=== PATIENT | male | born 1995 | race Caucasian/White ===

== ENCOUNTER 2018-02-23 15:14 | Inpatient (IN) | payer MEDICAID, OTHER ==
[~2018-02-23] VITALS: Ht 170.2 cm; Wt 67.6 kg
[2018-02-23] MEDS ORDERED: LORazepam 2 MG TABLET PO ONE (16:00)
[2018-02-23] MEDS ORDERED: HALOPERIDOL 5 MG TABLET PO ONE (16:00)
[2018-02-23 16:41] LABS: ANION GAP 17 mmol/L (8-16); CALCIUM, TOTAL 9.6 mg/dL (8.8-10.5); CARBON DIOXIDE 24 mmol/L (22-29); CHLORIDE 101 mmol/L (98-107); CREATININE 0.73 mg/dL (0.60-1.30); GLOMERULAR FILTR. RATE CALC > 60 mL/min (>60); GLUCOSE,RANDOM 109 mg/dL (70-110); POTASSIUM 3.4 mmol/L (3.5-5.1); SODIUM SERUM 142 mmol/L (136-145); UREA NITROGEN, BLOOD 9 mg/dL (7-18)
[2018-02-23 16:42] LABS: BASOPHILS % (AUTO) 0.5 % (0.0-2.0); EOSINOPHILS % (AUTO) 0.1 % (1.0-6.0); HEMATOCRIT 46.5 % (41-53); HEMOGLOBIN 16.7 g/dL (13.5-17.5); LYMPHOCYTES # (AUTO) 0.9 K/uL (1.0-4.8); LYMPHOCYTES % (AUTO) 9.7 % (22.0-44.0); MEAN CORPUSCULAR HEMOGLOBIN 30.1 pg (26.0-34.0); MEAN CORPUSCULAR HGB CONC 35.9 G/dL (31.0-37.0); MEAN CORPUSCULAR VOLUME 84 fL (80-100); MONOCYTES # (AUTO) 0.6 K/uL (0.1-1.0); MONOCYTES % (AUTO) 6.3 % (2.0-9.0); NEUTROPHILS # (AUTO) 8.2 K/uL (1.8-7.7); NEUTROPHILS % (AUTO) 83.4 % (40.0-70.0); PLATELET COUNT (AUTO) 234 K/uL (150-450); RED BLOOD CELL COUNT(AUTO) 5.54 MIL/uL (4.50-5.90); RED CELL DISTRIBUTION WIDTH 12.8 % (11.5-14.5)
[2018-02-23 16:44] LABS: ALANINE AMINOTRANSFERASE 22 U/L (12-78); ALBUMIN 5.4 g/dL (3.4-5.0); ALKALINE PHOSPHATASE 64 U/L (46-116); ASPARTATE AMINOTRANSFERASE 18 U/L (15-37); BILIRUBIN,TOTAL 4.5 mg/dL (0.1-1.0); TOTAL PROTEIN, SERUM 8.9 g/dL (6.4-8.2)
[2018-02-23 18:55] VITALS: BP 104/60
[2018-02-23] MEDS ORDERED: POTASSIUM CHLORIDE 20 MEQ ER TABLET PO ONE (20:00)
[2018-02-24 06:31] VITALS: BP 149/79
[2018-02-24 08:28] VITALS: BP 138/65
[2018-02-24] MEDS: LORazepam 2 MG TABLET PO PRN ×3 (08:32→20:26)
[2018-02-24] MEDS: HALOPERIDOL 5 MG TABLET PO PRN (08:32)
[2018-02-24] MEDS ORDERED: DiphenhydrAMINE HCL 50 MG/ML VIAL ONE (11:56)
[2018-02-24] MEDS ORDERED: LORazepam 2 MG/ML VIAL ONE (11:56)
[2018-02-24] MEDS ORDERED: HALOPERIDOL LACTATE 5 MG/ML VIAL ONE (11:56)
[2018-02-24] MEDS ORDERED: LORazepam 2 MG/ML VIAL IM ONE (12:15)
[2018-02-24] MEDS ORDERED: DiphenhydrAMINE HCL 50 MG/ML VIAL IM ONE (12:15)
[2018-02-24] MEDS ORDERED: HALOPERIDOL LACTATE 5 MG/ML VIAL IM ONE (12:15)
[2018-02-24 12:40] VITALS: BP 120/71
[2018-02-24] MEDS: FLUoxetine HCL 20 MG CAPSULE PO SCH (15:17)
[2018-02-24] MEDS: BENZTROPINE MESYLATE 0.5 MG TABLET PO SCH (16:23)
[2018-02-24] MEDS: HALOPERIDOL 5 MG TABLET PO SCH (16:24)
[2018-02-24] MEDS: ZOLPIDEM TARTRATE 10 MG TABLET PO PRN (20:26)
[2018-02-25 03:43] VITALS: BP 148/92
[2018-02-25 08:19] VITALS: BP 142/82
[2018-02-25] MEDS: BENZTROPINE MESYLATE 0.5 MG TABLET PO SCH ×2 (08:19→16:24)
[2018-02-25] MEDS: FLUoxetine HCL 20 MG CAPSULE PO SCH (08:19)
[2018-02-25] MEDS: HALOPERIDOL 5 MG TABLET PO SCH ×2 (08:19→16:24)
[2018-02-25 09:00] LABS: HEMOGLOBIN A1C 5.5 % (4.5-6.2)
[2018-02-25 09:20] LABS: ANION GAP 11 mmol/L (8-16); CALCIUM, TOTAL 9.1 mg/dL (8.8-10.5); CARBON DIOXIDE 27 mmol/L (22-29); CHLORIDE 101 mmol/L (98-107); CHOL/HDL RATIO 2.3 (4.2-7.3); CHOLESTEROL 139 mg/dL (131-200); CREATININE 0.73 mg/dL (0.60-1.30); FREE T4 (FREE THYROXINE) 1.29 ng/dL (0.76-1.46); GLOMERULAR FILTR. RATE CALC > 60 mL/min (>60); GLUCOSE,RANDOM 121 mg/dL (70-110); HDL CHOLESTEROL 60 mg/dL (40-60); LDL CHOL (CALC.) 67 mg/dL (0-130); POTASSIUM 3.3 mmol/L (3.5-5.1); SODIUM SERUM 139 mmol/L (136-145); THYROID STIMULATING HORMONE 1.82 uIU/mL (0.36-3.74); TRIGLYCERIDES 58 mg/dL (15-150); UREA NITROGEN, BLOOD 12 mg/dL (7-18)
[2018-02-25] MEDS ORDERED: IBUPROFEN 600 MG TABLET PO PRN (10:00)
[2018-02-25] MEDS ORDERED: ONDANSETRON HCL 4 MG TABLET PO PRN (10:00)
[2018-02-25] MEDS ORDERED: BENZOCAINE/MENTHOL LOZENGE MM PRN (10:00)
[2018-02-25] MEDS ORDERED: LOPERAMIDE HCL 2 MG CAPSULE PO PRN (10:00)
[2018-02-25] MEDS ORDERED: ALBUTEROL SULFATE HFA 90 MCG/PUFF 8 GM INHALER IH PRN (10:00)
[2018-02-25] MEDS ORDERED: PETROLATUM,WHITE 71 GM JELLY TP PRN (10:00)
[2018-02-25] MEDS ORDERED: ACETAMINOPHEN 325 MG TABLET PO PRN (10:00)
[2018-02-25] MEDS ORDERED: BACITRACIN 28.4 GM OINTMENT TP PRN (10:00)
[2018-02-25] MEDS ORDERED: MAG HYDROX/AL HYDROX/SIMETH ES 30 ML SUSPENSION UDCUP PO PRN (10:00)
[2018-02-25] MEDS ORDERED: CloNIDine HCL 0.1 MG TABLET PO PRN (10:00)
[2018-02-25] MEDS ORDERED: MAGNESIUM HYDROXIDE SUSPENSION 30 ML UDCUP PO PRN (10:00)
[2018-02-25] MEDS ORDERED: POTASSIUM CHLORIDE 20 MEQ ER TABLET PO ONE (10:45)
[2018-02-25 16:05] VITALS: BP 139/66
[2018-02-25] MEDS: LORazepam 2 MG TABLET PO PRN ×2 (16:24→20:29)
[2018-02-25] MEDS: ZOLPIDEM TARTRATE 10 MG TABLET PO PRN (20:29)
[2018-02-26] MEDS: LORazepam 2 MG TABLET PO PRN ×3 (01:37→18:59)
[2018-02-26] MEDS: HALOPERIDOL 5 MG TABLET PO PRN ×3 (01:37→18:59)
[2018-02-26 01:56] VITALS: BP 132/77
[2018-02-26 08:20] VITALS: BP 134/81
[2018-02-26] MEDS: BENZTROPINE MESYLATE 0.5 MG TABLET PO SCH ×2 (08:42→17:26)
[2018-02-26] MEDS: HALOPERIDOL 5 MG TABLET PO SCH ×2 (08:42→17:26)
[2018-02-26] MEDS: FLUoxetine HCL 20 MG CAPSULE PO SCH (08:42)
[2018-02-26 16:05] VITALS: BP 113/69
[2018-02-27] MEDS: HALOPERIDOL 5 MG TABLET PO PRN (02:07)
[2018-02-27 02:08] VITALS: BP 117/68
[2018-02-27] MEDS: LORazepam 2 MG TABLET PO PRN ×3 (02:17→14:23)
[2018-02-27 08:13] VITALS: BP 120/72
[2018-02-27] MEDS: FLUoxetine HCL 20 MG CAPSULE PO SCH (08:22)
[2018-02-27] MEDS: HALOPERIDOL 5 MG TABLET PO SCH (08:22)
[2018-02-27] MEDS: BENZTROPINE MESYLATE 0.5 MG TABLET PO SCH ×2 (08:22→16:58)
[2018-02-27 11:00] LABS: APPEARANCE,URINE CLOUDY (CLEAR)
[2018-02-27 11:01] LABS: BILIRUBIN,URINE NEGATIVE (NEGATIVE); GLUCOSE, URINE (UA) NEGATIVE (NEGATIVE); KETONES,URINE NEGATIVE (NEGATIVE); LEUKOCYTE ESTERASE ,URINE SMALL (NEGATIVE); NITRATE,URINE NEGATIVE (NEGATIVE); OCCULT BLOOD,URINE NEGATIVE (NEGATIVE); PROTEIN,URINE NEGATIVE (NEGATIVE); UROBILINOGEN,URINE 0.2 mg/dL (<=1.0)
[2018-02-27 11:03] LABS: AMORPHOUS SEDIMENT,UR Many /LPF (None Seen); BACTERIA,URINE Few /HPF (None Seen); CALCIUM OXALATE CRYSTALS,UR Rare /LPF (None Seen); RBC,URINE None Seen /HPF (0-2); SQUAMOUS EPITHELIAL CELL,UR Rare /LPF (None Seen)
[2018-02-27 12:29] LABS: AMPHET/METH SCREEN,URINE NEGATIVE (NEGATIVE); BARBITURATE SCREEN, URINE NEGATIVE (NEGATIVE); BENZODIAZEPINES SCREEN,URINE NEGATIVE (NEGATIVE); CANNABINOID SCREEN,URINE POSITIVE (NEGATIVE); COCAINE SCREEN,URINE NEGATIVE (NEGATIVE); METHADONE SCREEN, URINE NEGATIVE (NEGATIVE); OPIATE SCREEN,URINE NEGATIVE (NEGATIVE)
[2018-02-27 12:32] LABS: PHENCYCLIDINE SCREEN,URINE NEGATIVE (NEGATIVE)
[2018-02-27 16:00] VITALS: BP 121/70
[2018-02-27] MEDS: HALOPERIDOL 10 MG TABLET PO SCH (16:58)
[2018-02-28 01:12] VITALS: BP 115/71
[2018-02-28] MEDS: HALOPERIDOL 5 MG TABLET PO PRN (01:54)
[2018-02-28] MEDS: LORazepam 2 MG TABLET PO PRN ×2 (02:12→16:39)
[2018-02-28 08:12] VITALS: BP 118/77
[2018-02-28] MEDS: FLUoxetine HCL 20 MG CAPSULE PO SCH (09:00)
[2018-02-28] MEDS: BENZTROPINE MESYLATE 0.5 MG TABLET PO SCH ×2 (09:00→16:39)
[2018-02-28] MEDS: HALOPERIDOL 10 MG TABLET PO SCH ×2 (09:00→16:39)
[2018-02-28 16:00] VITALS: BP 119/88
[2018-03-01 00:22] VITALS: BP 127/68
[2018-03-01] MEDS: LORazepam 2 MG TABLET PO PRN ×4 (01:48→16:49)
[2018-03-01] MEDS: ZOLPIDEM TARTRATE 10 MG TABLET PO PRN ×2 (01:48→21:18)
[2018-03-01] MEDS: FLUoxetine HCL 20 MG CAPSULE PO SCH (08:02)
[2018-03-01] MEDS: HALOPERIDOL 10 MG TABLET PO SCH (08:02)
[2018-03-01] MEDS: BENZTROPINE MESYLATE 0.5 MG TABLET PO SCH ×2 (08:02→16:49)
[2018-03-01 08:21] VITALS: BP 137/64
[2018-03-01] MEDS: HALOPERIDOL 5 MG TABLET PO PRN (12:41)
[2018-03-01 16:00] VITALS: BP 114/70
[2018-03-01] MEDS: HALOPERIDOL 5 MG TABLET PO SCH (16:49)
[2018-03-02 02:48] VITALS: BP 133/78
[2018-03-02 03:19] VITALS: BP 120/73
[2018-03-02 08:22] VITALS: BP_SYST 113; BP_SYST 138; BP_DIAS 67; BP_DIAS 84
[2018-03-02] MEDS: HALOPERIDOL 5 MG TABLET PO SCH (08:46)
[2018-03-02] MEDS: BENZTROPINE MESYLATE 0.5 MG TABLET PO SCH (08:46)
[2018-03-02] MEDS ORDERED: FLUoxetine HCL 20 MG CAPSULE PO SCH (09:00)
[2018-03-02] MEDS ORDERED: HALO5 PO (10:03)
[2018-03-02] MEDS ORDERED: FLUO-191 PO (10:03)
[2018-03-02] MEDS ORDERED: BENZ0.5T44 PO (10:03)
== END 2018-03-02 12:00 | disposition home or self-care (01) | DRG 751 ==
LOC: EMS 15:15 → B3A 17:55
PROVIDERS: ADMIT Psychiatry & Neurology Psychiatry; ATTEND Psychiatry & Neurology Psychiatry
DX: F29 Unspecified psychosis not due to a substance or known physiological condition (principal); R45.851 Suicidal ideations; E87.6 Hypokalemia; F41.9 Anxiety disorder, unspecified; F12.90 Cannabis use, unspecified, uncomplicated; R45.87 Impulsiveness; G47.00 Insomnia, unspecified; K59.00 Constipation, unspecified; R40.0 Somnolence
CPT/HCPCS: 80307; 83036; 84132; 84439; 84443; 99285; G0480; J1200; J1630; J2060